=== PATIENT | female | born 1970 | race African-American/Black ===

== ENCOUNTER 2020-11-01 03:42 | Inpatient (IN) | payer OTHER ==
[~2020-11-01] VITALS: Ht 172.7 cm; Wt 172.4 kg
[2020-11-01 03:43] VITALS: BP 136/87
[2020-11-01] MEDS ORDERED: ZOCOR80 MG PO (03:59)
[2020-11-01] MEDS ORDERED: GLUMETZA500 PO (03:59)
[2020-11-01] MEDS ORDERED: LOSARTAN POTAS100 MG PO (03:59)
[2020-11-01 04:00] LABS: HEMATOCRIT 38.2 % (37.0-47.0); HEMOGLOBIN 11.8 gm/dL (12.0-15.0); MCH 23.6 pg (26.0-34.0); MCV 76.1 fL (80.0-100.0); PLATELET COUNT 502 thou/uL (150-400); RBC 5.02 mil/uL (4.20-5.00); RDW 18.1 % (10.5-14.5)
[2020-11-01] MEDS ORDERED: NORVASC10 MG PO (04:00)
[2020-11-01 04:07] LABS: CALCIUM 8.7 mg/dL (8.5-10.1); CREATININE 1.1 mg/dL (0.6-1.0); POTASSIUM 3.7 mmol/L (3.5-5.1)
[2020-11-01 04:26] LABS: METAMYELOCYTES 2 %
[2020-11-01 04:27] LABS: ANISOCYTOSIS 2+; HYPOCHROMASIA 1+; OVALOCYTES FEW; POLYCHROMASIA 1+
[2020-11-01 04:55] LABS: URINE BILIRUBIN NEGATIVE (Negative); URINE BLOOD TRACE (Negative); URINE CLARITY CLEAR; URINE COLOR YELLOW; URINE GLUCOSE-RANDOM* NEGATIVE (Negative); URINE KETONES NEGATIVE (Negative); URINE LEUKOCYTES-REFLEX NEGATIVE (Negative); URINE NITRITE-REFLEX POSITIVE (Negative); URINE PROTEIN (DIPSTICK) NEGATIVE (Negative); URINE SPECIFIC GRAVITY <= 1.005 (1.005-1.035); URINE UROBILINOGEN 0.2 E.U./dl (0.2-1.0)
[2020-11-01 04:57] LABS: SQUAMOUS None Seen /LPF (0-3)
[2020-11-01 04:58] LABS: BACTERIA-REFLEX 1-9 Few /HPF (None Seen); CASTS None Seen /LPF (None Seen); CRYSTALS None Seen /LPF (None Seen); MUCUS None Seen strn/LPF (None Seen); URINE RBC None Seen /HPF (0-2); URINE WBC-REFLEX None Seen /HPF (0-5)
[2020-11-01 05:02] LABS: AMP/METHAMP Negative (Negative); BARBITURATES Negative (Negative); BENZODIAZEPINES Negative (Negative); COCAINE Negative (Negative); METHADONE Negative (Negative); OPIATES Negative (Negative); PCP Negative (Negative)
[2020-11-01] MEDS ORDERED: HYDRALAZINE 2525 M1 PO (05:05)
[2020-11-01] MEDS ORDERED: SPIRONOLACTONE25 MG PO (05:05)
[2020-11-01] MEDS ORDERED: FUROSEMIDE 40 M40 MG PO (05:06)
[2020-11-01] MEDS ORDERED: COZAAR100 MG PO (05:06)
[2020-11-01] MEDS ORDERED: SIMVASTATIN40 MG PO (05:06)
[2020-11-01] MEDS ORDERED: OZEMPIC0.25 MG/0. SUBQ (05:42)
[2020-11-01 06:57] VITALS: BP 136/78
--- NOTE | 2020-11-01 07:29 | EKG ---
[place] [address] [facility] [place] [address] ELECTROCARDIOGRAM REPORT Name: KODI CHURCHILL Room #: 170-8 ADM IN M.R.#: [id number] Admission: 11/01/20 Attend Phys: Kathleen Ansari MD Discharge: Date of : 74 Report #: [id number] [facility] ED Test Date: 2020-11-01 Test Time: 03:45:17 Pat Name: KODI CHURCHILL Department: Room: 170 Gender: F Manager Of Construction: WALTER : 1970 Requested By: Lita Arredondo Order Number: [id number] MD: Guero Mir Measurements Intervals [place] Rate: 124 P: 62 OR: 156 QRS: 7 QRSD: 84 T: 170 QT: 316 QTc: 454 Interpretive Statements Sinus tachycardia Nonspecific ST and T wave abnormality Baseline wander in lead(s) V6 No previous ECG available for comparison Electronically Signed On 11-01-2020 7:29:37 [employer] by Guero Mir [email or web address] <ELECTRONICALLY SIGNED> By: Guero Mir MD, [facility] 11/01/20 0729 [id number] [id number] Guero Mir MD, FACC /EPI
[2020-11-01 07:46] VITALS: BP 146/78
[2020-11-01 09:44] LABS: FOLIC ACID 19.6 ng/mL (8.6-58.9)
[2020-11-01 11:27] VITALS: BP 166/99
[2020-11-01 15:08] VITALS: BP 142/91
[2020-11-01 20:29] VITALS: BP 134/61
[2020-11-02 04:58] VITALS: BP 101/54
[2020-11-02 06:40] LABS: BASOPHILS 1.1 % (0.0-2.0); EOSINOPHILS 1.9 % (0.0-3.0); HEMATOCRIT 35.4 % (37.0-47.0); HEMOGLOBIN 10.8 gm/dL (12.0-15.0); LYMPHOCYTES 31.7 % (24.0-44.0); MCH 22.9 pg (26.0-34.0); MCHC 30.5 g/dL (28.0-37.0); MCV 75.1 fL (80.0-100.0); MONOCYTES 10.2 % (1.0-8.0); PLATELET COUNT 489 thou/uL (150-400); POLYS 55.1 % (36.0-66.0); RBC 4.71 mil/uL (4.20-5.00); RDW 18.1 % (10.5-14.5)
[2020-11-02 08:20] VITALS: BP 145/114
[2020-11-02 13:55] LABS: CALCIUM 9.4 mg/dL (8.5-10.1); CREATININE 1.1 mg/dL (0.6-1.0); MAGNESIUM 1.8 mg/dL (1.8-2.4); POTASSIUM 4.1 mmol/L (3.5-5.1)
[2020-11-02 14:08] VITALS: BP 154/102
[2020-11-02 15:24] VITALS: BP 155/101
[2020-11-02 20:03] VITALS: BP 143/101
--- NOTE | 2020-11-03 03:46 | HC ---
[facility] [place] [address] CONSULTATION Name: KODI CHURCHILL Room #: 353-P [facility] IN M.R.#: [id number] Admission: 11/01/20 Attend Phys: Kathleen Ansari MD Discharge: 11/02/20 Date of : 74 Report #: [id number] THIS REPORT FOR: cc: PETER BUCK Physician not on staff Bernardo Ochoa MD ~ DATE OF SERVICE: 11/01/2020 HISTORY OF PRESENT ILLNESS: This is a 50-year-old female patient who was seen by me for seizures. The patient indicates that she had an altogether of 5 seizures, they all happened within 1 year. This started spontaneously without any trauma. During the first seizure, she went to Emergency Room at and her blood sugar was 40. They did the workup, but did not suggest any seizure medications. During the second seizure, she went to [facility] and she bit her tongue. She was scheduled to have an MRI at [place]. During the second seizure, she was admitted to [place], but I do not have those records. She was scheduled to have an MRI as an outpatient because she will not fit into the machine they had because of her size. She had another seizure last night. The description is already there in H and P and Emergency Room doctor's note and does look like she had a tonic-clonic seizure. She did drink 1 alcoholic drink last night, but she does use marijuana. She believes her blood sugar was okay during the second and the third seizure. REVIEW OF SYSTEMS: A 14-point review of system was carried out in this patient, both from the patient and her . She has a question of pneumonia. She was COVID negative until about 4 days ago. She is on isolation until her COVID test come out to be negative. Her PCR is pending, but apparently the rapid test is negative. She is a diabetic, but she says she does not get hypoglycemic. She is morbidly obese. She does have some hypertension. She does not have any new ENT, cardiac, respiratory, GI, , musculoskeletal, constitutional, dermatological, hematological, psychiatric, throat, allergic symptom associated with present symptomatology. PAST MEDICAL HISTORY: Positive for 2 more seizures like this before. FAMILY HISTORY: Unremarkable. SOCIAL HISTORY: She says she does not drink regularly. She drinks some time and she took one drink last night. Records indicate she does smoke marijuana. PHYSICAL EXAMINATION: She is alert, responsive, able to follow simple and complex command. Her speech, concentration, fund of knowledge and memory is at her baseline. Cranial nerve examination appears unremarkable. Neuromuscular examination is symmetrical for strength, sensation, reflexes and tone. Her position sense is normal in both lower extremities. She says she is able to [facility] [address] [place] [address] CONSULTATION Name: KODI CHURCHILL Room #: 353-P DIS IN M.R.#: [id number] Admission: 11/01/20 Attend Phys: Kathleen Ansari MD Discharge: 11/02/20 Date of : 74 Report #: [id number] walk and she is not ataxic. I could not look at the fundus. There is no edema, cyanosis or jaundice. She is morbidly obese. She can hear and she does not appear to be in respiratory difficulty, but she does have a history of sleep apnea. Blood pressure is 166/99, respirations 16, pulse is 107, temperature is 98. LABORATORY DATA: Indicate a white count of 12.0, platelet count ____. Her GFR is normal at 53. IMPRESSION: This patient has a third episode of seizure. I discussed the situation with her. There is no documented hypoglycemia this time. I discussed with her the medications and the pros and cons of that. She is okay going on medications and I think Keppra will be desirable. She will get an EEG done and after that we would like to start her on Keppra. She cannot drive and she needs to take seizure precaution at least for 6 months. Those precautions were discussed and she should not drive for at least 6 months. Thank you very much for this referral and if you have any question, please feel free to contact me. <ELECTRONICALLY SIGNED> By: Bernardo Ochoa MD 11/03/20 0346 1152 1249 Bernardo Ochoa MD /nt
--- NOTE | 2020-11-03 14:54 | EEG ---
[facility] [place] [address] ELECTROENCEPHALOGRAM Name: KODI CHURCHILL Room #: 353-P [facility] IN M.R.#: [id number] Admission: 11/01/20 Attend Phys: Kathleen Ansari MD Discharge: 11/02/20 Date of : 74 Report #: [id number] THIS REPORT FOR: //name// DATE OF SERVICE: 11/01/2020 This patient is being evaluated for the possibility of seizure. EEG was done by placing the electrodes by standard 10-20 system of electrode placement. Both referential and sequential montages were used for recording. Background activity in this patient's EEG is about 8-9 Hz and 30 microvolt. It is a symmetrical activity. The patient went to sleep and that is associated with bilateral slowing and vertex sharp waves. Photic stimulation was unremarkable. Throughout the record, no active epileptiform activity was noted. IMPRESSION: The patient's EEG is intermixed with theta range slowing on both sides. That is nonspecific abnormality, which can occur with drowsiness, effect of psychotropic medication, dementia, etc. Clinical correlation is recommended. No active epileptiform activity was noticed during this record. <ELECTRONICALLY SIGNED> By: Bernardo Ochoa MD 11/03/20 1454 1149 1159 Bernardo Ochoa MD /nt
[2020-11-04 01:06] LABS: GLYCOHEMOGLOBIN (HGB A1C) 6.2 % (4.8-5.6)
== END 2020-11-02 20:40 | disposition left against medical advice (07) | DRG 100 ==
LOC: ER 03:42 → EROBS 06:17 → 3W 06:17
PROVIDERS: Emergency Medicine; Nurse Practitioner; ADMIT Internal Medicine; ATTEND Internal Medicine
DX: G40.89 Other seizures (principal); J18.9 Pneumonia, unspecified organism; G93.41 Metabolic encephalopathy; N39.0 Urinary tract infection, site not specified; N17.9 Acute kidney failure, unspecified; Z68.43 Body mass index [BMI] 50.0-59.9, adult; R65.10 Systemic inflammatory response syndrome (SIRS) of non-infectious origin without acute organ dysfunction; E11.9 Type 2 diabetes mellitus without complications; I50.9 Heart failure, unspecified; F12.90 Cannabis use, unspecified, uncomplicated; E66.01 Morbid (severe) obesity due to excess calories; Z20.822 Contact with and (suspected) exposure to COVID-19; Z53.29 Procedure and treatment not carried out because of patient's decision for other reasons; E78.5 Hyperlipidemia, unspecified; F17.210 Nicotine dependence, cigarettes, uncomplicated; I11.0 Hypertensive heart disease with heart failure; G47.33 Obstructive sleep apnea (adult) (pediatric); Z90.49 Acquired absence of other specified parts of digestive tract; Z86.73 Personal history of transient ischemic attack (TIA), and cerebral infarction without residual deficits; Z88.6 Allergy status to analgesic agent; Z88.0 Allergy status to penicillin
CPT/HCPCS: 10879

== ENCOUNTER 2021-02-07 18:31 | Emergency (ER) | payer OTHER ==
[~2021-02-07] VITALS: Ht 172.7 cm; Wt 169.7 kg
--- NOTE | ~2021-02-07 | EMS ---
[address] [address] EMS Patient Care Report Name: KODI CHURCHILL Room #: REG JE Shea#: [id number] Admission: 02/07/21 Attend Phys: Discharge: Date of : 74 Report #: [id number] THIS REPORT FOR: //name// Report Transmitted: 02/07/2021 19:50 EMS Care Summary [place], [place]/[facility] Incident [id number] @ 02/07/2021 17:51 Incident Location [address] [place] [id number] Patient KODI CHURCHILL Female, 50 Years 1970 Patient Address [address] [place] [address] Patient History Hypertension (HTN),Seizures,Morbid Obesity, Patient Allergies No known allergies, Patient Medications Unknown, Chief Complaint SEIZURE Disposition Transported No Lights/[place] Dispatch Reason Stroke/CVA Transported To [facility] Narrative M36 DISPATCHED ON A STROKE. M36 ARRIVED TO FIND P41 AT PT SIDE INSIDE OF APARTMENT. PT FAMILY STATED PT "BECAME RIGID AND QUITE RESPONDING TO [address] [address] EMS Patient Care Report Name: KODI CHURCHILL Room #: REG JE Shea#: [id number] Admission: 02/07/21 Attend Phys: Discharge: Date of : 74 Report #: [id number] QUESTIONS." PT FAMILY STATED PT "HAD A SEIZURE SIX MONTHS AGO." PT FAMILY STATED "SHE IS NOT ON ANY MEDICATIONS FOR SEIZURES." PT INITIALLY ALERT TO VERBAL ONLY. PT BEGAN VOMITING ON SCENE. PT ROLLED ONTO [place] NURSING COORDINATOR BY P41. PT CARRIED OUT OF APARTMENT VIA FOUR STAIRS UP AND FOR STAIRS DOWN BY EMS AND FIRE. PT SECURED TO STRETCHER WITH SE[employer]BELTS. PT PROVIDED EMESIS BUCKET BY EMS. PT BEGAN ANSWERING QUESTIONS IN BACK OF AMBULANCE. PT ALERT AND ORIENTED X3 AT THIS TIME. PT DENIED KNOWING WHAT HAPPENED. PT STATED "I STARTED TO FEEL SICK WITH A COUGH LAST NIGHT." PT STATED SHE "FELT LIKE SHE WAS STARTING TO HAVE A FEVER TODAY." PT DENIED TAKING MORNING MEDS YET TODAY. PT COULD NOT RECALL WHAT MEDS SHE TAKES. PT STATED "I THINK I PEED MYSELF." PT VS MONITORED EN ROUTE INCLUDING CREDIT ASSOCIATE. PT REPORT GIVEN. PT MOVED TO HOSPITAL BED VIA FOUR PERSON SHEET LIFT. PT CARE AND BELONGINGS TRANSFERRED TO ER STAFF AT [facility] WITHOUT INCIDENT. M36 PLACED BACK IN SERVICE. Initial Vitals @18:06P: 130,R: 18,BP: 178/122,Pain: 0/10,GCS: 15,SpO2: 95,Revised Trauma: 12,RI Suspected: false @18:19P: 124,R: 18,BP: 152/72,Pain: 0/10,GCS: 15,Glucose: 118,CO: 13,SpO2: 96,Revised Trauma: 12, Assessments @18:14MENTAL:Person Oriented,Time Oriented,Place Oriented,SKIN:HEENT:LUNG SOUNDS:General: Vomiting,General: Nausea,ABDOMEN:General: Vomiting,General: Nausea,PELVIS//GI:Incontinence,EXTREMITIES:PULSE:Radial: 2+ Normal,NEURO:Seizures, Impression Seizures Procedures @18:04ALS AssessmentResponse: UnchangedSucceeded@18:003-Lead ECGResponse: UnchangedSucceeded Timeline 17:50,Call Received 17:50,Dispatch Notified 17:51,Dispatched 17:51,En Route 17:56,On Scene 17:57,At Patient 18:00,3-Lead ECG,Response: UnchangedSucceeded, 18:04,ALS Assessment,Response: UnchangedSucceeded, 18:06,BP: 178/122 M,PULSE: 130,RR: 18 R,SPO2: 95 Ox,ETCO2: ,BG: ,PAIN: 0,GCS: 15, 18:12,Depart Scene [address] [address] EMS Patient Care Report Name: KODI CHURCHILL Room #: REG [facility].#: [id number] Admission: 02/07/21 Attend Phys: Discharge: Date of : 74 Report #: [id number] 18:19,BP: 152/72 M,PULSE: 124,RR: 18 R,SPO2: 96 Ox,ETCO2: ,B,PAIN: 0,GCS: 15, 18:24,At Destination 18:40,Call Closed Disclaimer v1.1 Copyright 2020 [employer] This EMS Care Summary contains data elements from the applicable legal record (which may be displayed differently). It is designed to provide pertinent information for the following purposes: continuity of care, clinical quality, and state data reporting. The complete legal record is available to ED staff and administrators of the receiving hospital in [employer]'s Patient Tracker. All data is provided "as is."
[~2021-02-07 18:31] MED LIST: COZAAR100 MG PO; FUROSEMIDE 40 M40 MG PO; GLUMETZA500 PO; HYDRALAZINE 2525 M1 PO; LOSARTAN POTAS100 MG PO; NORVASC10 MG PO; OZEMPIC0.25 MG/0. SUBQ; SIMVASTATIN40 MG PO; SPIRONOLACTONE25 MG PO; ZOCOR80 MG PO
[2021-02-07 19:05] LABS: ABSOLUTE NEUTROPHILS 8.8 thou/uL (1.4-8.2); BASOPHILS 0.5 % (0.0-2.0); HEMATOCRIT 34.7 % (37.0-47.0); HEMOGLOBIN 10.5 gm/dL (12.0-15.0); LYMPHOCYTES 25.2 % (24.0-44.0); MCH 21.8 pg (26.0-34.0); MCHC 30.4 g/dL (28.0-37.0); MCV 71.8 fL (80.0-100.0); MONOCYTES 6.3 % (1.0-8.0); PLATELET COUNT 506 thou/uL (150-400); RBC 4.83 mil/uL (4.20-5.00); RDW 18.5 % (10.5-14.5); WBC 13.2 thou/uL (4.0-11.0)
[2021-02-07 19:13] LABS: CALCIUM 9.1 mg/dL (8.5-10.1); POTASSIUM 3.6 mmol/L (3.5-5.1)
[2021-02-07 19:25] LABS: ANISOCYTOSIS 1+; HYPOCHROMASIA 1+; MICROCYTES 1+
[2021-02-07 20:59] LABS: URINE BILIRUBIN NEGATIVE (Negative); URINE BLOOD 3+ (Negative); URINE CLARITY CLEAR; URINE COLOR YELLOW; URINE GLUCOSE-RANDOM* NEGATIVE (Negative); URINE KETONES NEGATIVE (Negative); URINE LEUKOCYTES-REFLEX TRACE (Negative); URINE NITRITE-REFLEX NEGATIVE (Negative); URINE PROTEIN (DIPSTICK) 2+ (Negative); URINE UROBILINOGEN 0.2 E.U./dl (0.2-1.0)
[2021-02-07 21:07] LABS: CASTS None Seen /LPF (None Seen); SQUAMOUS 0-3 Few /LPF (0-3)
[2021-02-07 21:08] LABS: BACTERIA-REFLEX 1-9 Few /HPF (None Seen); CRYSTALS None Seen /LPF (None Seen); URINE RBC >20 Many /HPF (NONE SEEN); URINE WBC-REFLEX 0-5 Rare /HPF (0-5)
[2021-02-07] MEDS ORDERED: KEPPRA XR750 MG PO (21:14)
[2021-02-07 21:30] VITALS: BP 152/95
== END 2021-02-07 21:36 | disposition home or self-care (01) ==
LOC: ER 18:31
PROVIDERS: Nurse Practitioner
DX: R56.9 Unspecified convulsions (principal); E11.9 Type 2 diabetes mellitus without complications; I50.9 Heart failure, unspecified; Z88.5 Allergy status to narcotic agent; Z88.0 Allergy status to penicillin; Z79.899 Other long term (current) drug therapy; Z86.73 Personal history of transient ischemic attack (TIA), and cerebral infarction without residual deficits; Z90.49 Acquired absence of other specified parts of digestive tract; Z98.51 Tubal ligation status

== ENCOUNTER 2021-02-15 15:20 | Emergency (ER) | payer OTHER ==
[~2021-02-15] VITALS: Ht 172.7 cm; Wt 171.5 kg
[~2021-02-15 15:20] MED LIST changes: +KEPPRA XR750 MG PO
[2021-02-15 16:54] VITALS: BP 146/106
== END 2021-02-15 16:56 | disposition home or self-care (01) ==
LOC: ER 15:20
DX: R51.9 Headache, unspecified (principal); R42 Dizziness and giddiness; R43.9 Unspecified disturbances of smell and taste; E11.9 Type 2 diabetes mellitus without complications; I50.9 Heart failure, unspecified; E66.9 Obesity, unspecified; Z68.43 Body mass index [BMI] 50.0-59.9, adult; Z98.51 Tubal ligation status; Z90.49 Acquired absence of other specified parts of digestive tract; Z86.73 Personal history of transient ischemic attack (TIA), and cerebral infarction without residual deficits; Z79.899 Other long term (current) drug therapy; Z88.5 Allergy status to narcotic agent; Z88.0 Allergy status to penicillin

== ENCOUNTER 2021-02-18 20:38 | Emergency (ER) | payer OTHER ==
[~2021-02-18] VITALS: Ht 172.7 cm; Wt 166.5 kg
[2021-02-18 21:06] LABS: BASOPHILS 0.6 % (0.0-2.0); EOSINOPHILS 1.6 % (0.0-3.0); HEMATOCRIT 33.9 % (37.0-47.0); HEMOGLOBIN 10.4 gm/dL (12.0-15.0); LYMPHOCYTES 24.1 % (24.0-44.0); MCH 21.6 pg (26.0-34.0); MCHC 30.6 g/dL (28.0-37.0); MCV 70.5 fL (80.0-100.0); MONOCYTES 6.9 % (1.0-8.0); PLATELET COUNT 460 thou/uL (150-400); POLYS 66.8 % (36.0-66.0); RDW 18.4 % (10.5-14.5); WBC 13.4 thou/uL (4.0-11.0)
[2021-02-18 21:17] LABS: ANION GAP 9 mmol/L (7-16); BUN 14 mg/dL (7-18); CALCIUM 9.5 mg/dL (8.5-10.1); CHLORIDE 103 mmol/L (98-107); CO2 28 mmol/L (21-32); CREATININE 0.9 mg/dL (0.6-1.0); GLUCOSE 87 mg/dL (74-106); POTASSIUM 4.2 mmol/L (3.5-5.1); SODIUM 140 mmol/L (136-145)
[2021-02-18 21:20] LABS: URINE BILIRUBIN NEGATIVE (Negative); URINE BLOOD TRACE (Negative); URINE CLARITY CLEAR; URINE COLOR YELLOW; URINE GLUCOSE-RANDOM* NEGATIVE (Negative); URINE KETONES NEGATIVE (Negative); URINE LEUKOCYTES-REFLEX TRACE (Negative); URINE NITRITE-REFLEX NEGATIVE (Negative); URINE PROTEIN (DIPSTICK) 3+ (Negative); URINE SPECIFIC GRAVITY >= 1.030 (1.005-1.035); URINE UROBILINOGEN 0.2 E.U./dl (0.2-1.0)
[2021-02-18 21:29] LABS: AMP/METHAMP Negative (Negative); BARBITURATES Negative (Negative); BENZODIAZEPINES Negative (Negative); COCAINE Negative (Negative); METHADONE Negative (Negative); OPIATES Negative (Negative); PCP Negative (Negative)
[2021-02-18 21:31] LABS: ALBUMIN 3.1 g/dL (3.4-5.0); SGOT 13 U/L (15-37); SGPT 25 U/L (14-59); TOTAL BILIRUBIN 0.3 mg/dL (0.2-1.0); TOTAL PROTEIN 8.6 g/dL (6.4-8.2)
[2021-02-18 21:59] LABS: SQUAMOUS 4-10 Moderate /LPF (0-3)
[2021-02-18 22:00] LABS: CASTS None Seen /LPF (None Seen); URINE RBC 1-2 Rare /HPF (NONE SEEN)
[2021-02-18 22:01] LABS: BACTERIA-REFLEX 1-9 Few /HPF (None Seen); CRYSTALS None Seen /LPF (None Seen)
[2021-02-19 00:10] VITALS: BP 172/116
== END 2021-02-19 00:10 | disposition home or self-care (01) ==
LOC: ER 20:38
PROVIDERS: Emergency Medicine
DX: F32.9 Major depressive disorder, single episode, unspecified (principal); Z20.822 Contact with and (suspected) exposure to COVID-19; G40.909 Epilepsy, unspecified, not intractable, without status epilepticus; E11.9 Type 2 diabetes mellitus without complications; I50.9 Heart failure, unspecified; F17.210 Nicotine dependence, cigarettes, uncomplicated; Z88.5 Allergy status to narcotic agent; Z88.0 Allergy status to penicillin; Z88.8 Allergy status to other drugs, medicaments and biological substances; Z79.899 Other long term (current) drug therapy; Z98.51 Tubal ligation status; Z90.49 Acquired absence of other specified parts of digestive tract; Z86.73 Personal history of transient ischemic attack (TIA), and cerebral infarction without residual deficits

== ENCOUNTER → 2021-03-11 | Outpatient (CLI) | payer OTHER | LOC: SJCVC 14:54 | PROVIDERS: ATTEND Internal Medicine | DX: R00.0 Tachycardia, unspecified (principal); I11.0 Hypertensive heart disease with heart failure; I50.9 Heart failure, unspecified; E11.9 Type 2 diabetes mellitus without complications; E66.9 Obesity, unspecified; G40.909 Epilepsy, unspecified, not intractable, without status epilepticus; F17.200 Nicotine dependence, unspecified, uncomplicated; F12.90 Cannabis use, unspecified, uncomplicated; Z79.84 Long term (current) use of oral hypoglycemic drugs; Z79.899 Other long term (current) drug therapy; Z88.0 Allergy status to penicillin; Z88.5 Allergy status to narcotic agent; Z88.8 Allergy status to other drugs, medicaments and biological substances ==

== ENCOUNTER 2021-03-26 21:22 | Emergency (ER) | payer OTHER ==
[~2021-03-26] VITALS: Ht 172.7 cm; Wt 165.6 kg
[2021-03-26 22:20] LABS: ABSOLUTE NEUTROPHILS 6.7 thou/uL (1.4-8.2); BASOPHILS 0.7 % (0.0-2.0); EOSINOPHILS 1.8 % (0.0-3.0); HEMATOCRIT 34.2 % (37.0-47.0); HEMOGLOBIN 10.8 gm/dL (12.0-15.0); LYMPHOCYTES 26.4 % (24.0-44.0); MCH 21.9 pg (26.0-34.0); MCHC 31.5 g/dL (28.0-37.0); MCV 69.3 fL (80.0-100.0); MONOCYTES 6.8 % (1.0-8.0); PLATELET COUNT 473 thou/uL (150-400); POLYS 64.3 % (36.0-66.0); RBC 4.93 mil/uL (4.20-5.00); RDW 19.3 % (10.5-14.5); WBC 10.5 thou/uL (4.0-11.0)
[2021-03-26 22:31] LABS: CREATININE 0.8 mg/dL (0.6-1.0); POTASSIUM 4.1 mmol/L (3.5-5.1)
[2021-03-26 23:27] LABS: ANISOCYTOSIS 2+; HYPOCHROMASIA 2+; MICROCYTES 2+; OVALOCYTES FEW; POLYCHROMASIA 1+; SCHISTOCYTES RARE; TARGET CELLS OCCASIONAL
[2021-03-27 00:01] VITALS: BP 134/95
[2021-03-27] MEDS ORDERED: MOBIC15 MG PO (01:35)
== END 2021-03-27 01:47 | disposition home or self-care (01) ==
LOC: ER 21:22
PROVIDERS: Emergency Medicine
DX: D25.9 Leiomyoma of uterus, unspecified (principal); R10.9 Unspecified abdominal pain; I50.9 Heart failure, unspecified; N93.8 Other specified abnormal uterine and vaginal bleeding; E11.9 Type 2 diabetes mellitus without complications; Z90.49 Acquired absence of other specified parts of digestive tract; Z79.891 Long term (current) use of opiate analgesic; Z88.0 Allergy status to penicillin; Z88.8 Allergy status to other drugs, medicaments and biological substances; Z88.5 Allergy status to narcotic agent; Z72.89 Other problems related to lifestyle; Z87.891 Personal history of nicotine dependence; Z86.73 Personal history of transient ischemic attack (TIA), and cerebral infarction without residual deficits

== ENCOUNTER → 2021-03-31 | Outpatient (CLI) | payer OTHER ==
[~2021-03-31] MED LIST changes: +MOBIC15 MG PO
== END ==
LOC: SJCVCIMAG
PROVIDERS: ATTEND Internal Medicine
DX: I08.1 Rheumatic disorders of both mitral and tricuspid valves (principal); R00.0 Tachycardia, unspecified; R06.00 Dyspnea, unspecified; E11.9 Type 2 diabetes mellitus without complications; I11.0 Hypertensive heart disease with heart failure; I50.9 Heart failure, unspecified; E78.00 Pure hypercholesterolemia, unspecified; G47.30 Sleep apnea, unspecified; E66.9 Obesity, unspecified; F17.210 Nicotine dependence, cigarettes, uncomplicated; Z68.43 Body mass index [BMI] 50.0-59.9, adult; Z90.49 Acquired absence of other specified parts of digestive tract; Z88.0 Allergy status to penicillin; Z88.8 Allergy status to other drugs, medicaments and biological substances; Z79.84 Long term (current) use of oral hypoglycemic drugs; Z79.899 Other long term (current) drug therapy; Z82.49 Family history of ischemic heart disease and other diseases of the circulatory system

== ENCOUNTER → 2021-09-15 | Outpatient (CLI) | payer OTHER ==
[~2021-09-15] MED LIST changes: +IRON325 M1 PO; +KEPPRA750 MG PO; +MELOXICAM15 MG PO; +OMEPRAZOLE40 MG PO; +ONE-DAILY MULT1 EAC1 PO; +TOPROL XL50 MG PO
== END ==
LOC: LAB 09-14 10:00
PROVIDERS: ATTEND Student in an Organized Health Care Education/Training Program
DX: Z01.812 Encounter for preprocedural laboratory examination (principal); Z20.822 Contact with and (suspected) exposure to COVID-19

== ENCOUNTER → 2021-09-19 | Outpatient (CLI) | payer OTHER ==
[~2021-09-19] VITALS: Ht 172.7 cm; Wt 165.6 kg
== END | disposition home or self-care (01) ==
LOC: GI 09:09
PROVIDERS: ATTEND Internal Medicine Gastroenterology
DX: Z12.11 Encounter for screening for malignant neoplasm of colon (principal); Z53.8 Procedure and treatment not carried out for other reasons; I11.0 Hypertensive heart disease with heart failure; I50.9 Heart failure, unspecified; E11.9 Type 2 diabetes mellitus without complications; E78.00 Pure hypercholesterolemia, unspecified; F32.9 Major depressive disorder, single episode, unspecified; R56.9 Unspecified convulsions; I42.9 Cardiomyopathy, unspecified; K21.9 Gastro-esophageal reflux disease without esophagitis; G47.30 Sleep apnea, unspecified; F17.210 Nicotine dependence, cigarettes, uncomplicated; E66.9 Obesity, unspecified; Z98.890 Other specified postprocedural states; Z79.899 Other long term (current) drug therapy; Z90.49 Acquired absence of other specified parts of digestive tract; Z86.73 Personal history of transient ischemic attack (TIA), and cerebral infarction without residual deficits; Z98.51 Tubal ligation status; Z88.0 Allergy status to penicillin; Z88.8 Allergy status to other drugs, medicaments and biological substances

== ENCOUNTER 2021-11-07 10:53 | Emergency (ER) | payer OTHER ==
[~2021-11-07] VITALS: Ht 172.7 cm; Wt 166.5 kg
[2021-11-07 11:03] VITALS: BP 167/107
[2021-11-07] MEDS ORDERED: BACTRIM DS TAB1 EAC1 PO (11:49)
== END 2021-11-07 12:07 | disposition home or self-care (01) ==
LOC: ER 10:53
DX: K13.0 Diseases of lips (principal); E11.9 Type 2 diabetes mellitus without complications; M79.7 Fibromyalgia; F17.210 Nicotine dependence, cigarettes, uncomplicated; F12.90 Cannabis use, unspecified, uncomplicated; E78.00 Pure hypercholesterolemia, unspecified; K21.9 Gastro-esophageal reflux disease without esophagitis; I11.0 Hypertensive heart disease with heart failure; I50.9 Heart failure, unspecified; E66.01 Morbid (severe) obesity due to excess calories; Z98.51 Tubal ligation status; Z90.49 Acquired absence of other specified parts of digestive tract; Z68.43 Body mass index [BMI] 50.0-59.9, adult; Z79.84 Long term (current) use of oral hypoglycemic drugs; Z79.1 Long term (current) use of non-steroidal anti-inflammatories (NSAID); Z79.899 Other long term (current) drug therapy; Z88.5 Allergy status to narcotic agent; Z88.6 Allergy status to analgesic agent; Z88.0 Allergy status to penicillin